=== PATIENT | male | born 1990 | race Caucasian/White ===

== ENCOUNTER 2018-01-30 08:19 | Day surgery (SDC) | payer OTHER ==
[2018-01-14 13:41] VITALS: BMI 30.9
[2018-01-30] MEDS ORDERED: Lactated Ringer's 1,000 ML IV ONE ×3 (11:05→16:33)
[2018-01-30] MEDS ORDERED: Midazolam 2 MG/2 ML VIAL ONE (11:11)
[2018-01-30] MEDS ORDERED: Propofol 10 mg/ml Inj (20 ML) ONE ×2 (11:11→11:49)
[2018-01-30] MEDS ORDERED: ceFAZolin 2 GM in Sodium Chloride 0.9% 100 ML IVPB ONE (11:30)
[2018-01-30] MEDS ORDERED: Neostigmine Methylsulfate 3mg/3ml Syringe IV ONE (14:02)
[2018-01-30] MEDS ORDERED: Bupivacaine HCl 0.5% PF (10 ml) Inj ONE ×2 (16:01)
[2018-01-30] MEDS ORDERED: HYDROmorphone 0.5 mg/0.5 ml ISec IVP PRN (16:02)
--- NOTE | 2018-01-30 16:21 | PCM.ANESB1 ---
Interscalene Block - Brachial Plexus Date of Procedure: 01/30/18 Anesthesiologist: Mian Pre-Procedure Diagnosis: right shoulder SLAP tear Post-Procedure Diagnosis: Right shoulder arthroscopy,labral repair,biceps repair - Procedure Interscalene Block of Brachial Plexus: This procedure was explained to the patient that it is for post-operative pain management. Consent was obtained after a thorough discussion with the patient regarding the benefits and possible complications of local anesthetic block of the Brachial Plexus at the Interscalene area. The patient was brought to the and standard monitors were applied. Time out was held with the RR nurse to confirm the correct surgery and appropriate block. After applying Oxygen by nasal cannula and administering IV Sedation, the patient's head was gently rotated away from the right_operative shoulder and the anterior scalene groove was carefully palpated. The ultrasound transducer was then applied to the skin in the transverse plane and the brachial plexus was visualized lateral to the carotid artery and in between the anterior and middle scalene muscles. After identification,the anterior lateral portion of the neck was prepped with Betadine solution three times and Lidocaine 1% was injected subcutaneously for topical analgesia. At this point, a # 22 gauge Stimuplex 2 inches insulated needle was inserted into the interscalene groove and directed in a caudal and midline direction. The needle was inserted lateral to the ultrasound transducer in-plane towards the brachial plexus in a [id number] direction. Needle advancement was performed carefully under direct ultrasound visualization. After repeated negative aspiration,__20___cc of__0.5%_,Bupivacaine_were injected and this was_ . Under ultrasound guidance the local anesthetics were observed surrounding the roots of the brachial plexus. The needle was removed intact and sterile dressing was applied. The patient had stable vital signs, was conscious and in no apparent distress. The patient tolerated the interscalene block of the bracheal plexus well with stable vital signs.
[2018-01-30 17:58] VITALS: BP 119/68; PULSE 92; RESP 18; TEMP 97.2; O2SAT 100
--- NOTE | 2018-01-31 10:30 | PCM.SURG1 ---
Surgeon's Initial Post Op Note - Surgeon's Notes Surgeon: Mayda Barnett MD Third Cook: Rusty Jimenez PA-C Type of Anesthesia: General Endo, Block [facility] Pre-Operative Diagnosis: L shoulder #1 SLAP tear. #2 partial biceps LH tendon tear. #3 partial RTC tear. #4 subacromial impingement. #5 subacromial bursitis. #6 AC joint arthropathy. #7 synovitis Operative Findings: L shoulder #1 SLAP tear. 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 #3 partial RTC tear. #4 subacromial impingement. #5 subacromial bursitis. #6 AC joint arthropathy. #7 synovitis Post-Operative Diagnosis: L shoulder #1 SLAP tear. 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 #3 partial RTC tear. #4 subacromial impingement. #5 subacromial bursitis. #6 AC joint arthropathy. #7 synovitis Operation Performed: L shoulder #1 arthroscopic SLAP repair. #2 arthroscopic extensive debridement (including biceps tenotomy/synovectomy/debridement partial RTC tear). #3 arthroscopic subacromial decompression w/ acromioplasty. #4 intra-articular PRP injection. #5 open biceps LH tenodesis Specimen/Specimens Removed: specimen= none. complications= none Estimated Blood Loss: EBL {In ML}: 10 Blood Products Given: N/A Drains Used: No Drains Post-Op Condition: Good Date of Surgery/Procedure: 01/30/18 Time of Surgery/Procedure: 15:00
== END 2018-01-30 18:30 | disposition home or self-care (01) ==
LOC: C.SDS 08:19
PROVIDERS: ATTEND Student in an Organized Health Care Education/Training Program
DX: S43.432A Superior glenoid labrum lesion of left shoulder, initial encounter (principal); M75.52 Bursitis of left shoulder; M75.42 Impingement syndrome of left shoulder; M19.012 Primary osteoarthritis, left shoulder; S46.112A Strain of muscle, fascia and tendon of long head of biceps, left arm, initial encounter; M65.9 Synovitis and tenosynovitis, unspecified; M75.102 Unspecified rotator cuff tear or rupture of left shoulder, not specified as traumatic
CPT/HCPCS: 23430; 29807; 29820; 29823; 29826; J0690; J1100; J1170; J1885; J2001; J2250; J2704; J2710; J3010; J7120